=== PATIENT | male | born 1955 ===

== ENCOUNTER 2018-09-02 10:43 | Emergency (ER) | payer OTHER ==
--- NOTE | 2018-09-02 11:08 | EDPHY ---
H & P Stated Complaint: hematuria/clots post radiation x 9 wks for prostate cancer Source: Patient Exam Limitations: No limitations - Personal History Current Tetanus Diphtheria and Acellular Pertussis (TDAP): Yes - Medical/Surgical History Hx Asthma: No Hx Chronic Respiratory Disease: No Hx Diabetes: No Hx Cardiac Disease: No Hx Renal Disease: No Hx Cirrhosis: No Hx Alcoholism: No Hx HIV/AIDS: No Hx Splenectomy or Spleen Trauma: No Other PMH: prostate cancer - Social History Smoking Status: Never smoked Time Seen by Provider: 09/02/18 11:07 HPI/ROS: HPI: This is a 63-year-old male who presents with Chief Complaint: hematuria/clots post radiation x 9 wks for prostate cancer Location: Quality: Blood in urine Duration: Since last night Signs and Symptoms: no fever, no nausea, no vomiting, no hematemesis, no blood in stool, no abdominal bloating, no diarrhea, no back pain, no urinary symptoms , no testicular/groin pain, no indigestion, no chest pain, no shortness of breath, + suprapubic fullness Timing: Rapid onset, slowly resolving Severity: [id number] Context: Patient has a history of prostate cancer, recently completed 9 weeks of radiation approximately 5 days ago, patient of Dr. Schofield, presents with complaints of last night having suprapubic fullness and passing large clots of blood in his urine. He was treated last month for urinary tract infection. He denies fever, burning with urination, back pain, chills, rigors. He has no dizziness, chest pain, shortness of breath. He reports that today he is able to urinate without difficulty. Modifying Factors: None Comment: ROS: A comprehensive 10 system review of systems is otherwise negative aside from elements mentioned in the history of present illness. MEDICAL/SURGICAL/SOCIAL HISTORY: Medical history: Prostate cancer, hypothyroidism Surgical history: Denies Social history: . Never smoked. Family history noncontributory. CONSTITUTIONAL: Overweight, nontoxic-appearing elderly white male, at bedside, awake and alert, no obvious distress HEENT: Atraumatic and normocephalic, PERRL, EOMI. Nares patent; no rhinorrhea; no nasal mucosal edema. Tympanic membranes clear. Oropharynx clear, no exudate and moist pink mucosa. Airway patent. No lymphadenopathy. No meningismus. Cardiovascular: Normal S1/S2, regular rate, regular rhythm, without murmur rub or gallop. PULMONARY/CHEST: Symmetrical and nontender. Clear to auscultation bilaterally. Good air movement. No accessory muscle usage. ABDOMEN: Soft, nondistended, mild suprapubic tenderness, no rebound, no guarding, no peritoneal signs, no masses or organomegaly. No CVAT. EXTREMITIES: 2/2 pulses, strength 5/5, no deformities, no clubbing, no cyanosis or edema. NEUROLOGICAL: no focal neuro deficits. GCS 15. SKIN: Warm and dry, no erythema. no rash. Good capillary refill. (Veran Naik) Constitutional: Initial Vital Signs Temperature (C) 36.4 C 09/02/18 10:48 Heart Rate 88 09/02/18 10:48 Respiratory Rate 18 09/02/18 10:48 Blood Pressure 122/69 H 09/02/18 10:48 O2 Sat (%) 96 09/02/18 10:48 O2 Delivery Mode Room Air Allergies/Adverse Reactions: No Known Allergies Allergy (Unverified 09/02/18 10:48) Home Medications: Medication Instructions Recorded Atorvastatin Calcium 09/02/18 Ciprofloxacin [Cipro] 500 mg PO BID #14 tab 09/02/18 Levothyroxine 09/02/18 Tamsulosin HCl 09/02/18 Medical Decision Making ED Course/Re-evaluation: Vital signs reviewed and stable upon arrival. No systemic signs. IV access, laboratory studies, urinalysis, bladder scan ordered 1122: Notified by RN that bladder scan= 58 mL 1208: Urinalysis shows signs of infection; sent for urine culture; IV Rocephin 1 g given Labs reviewed. WBC 9 K, H&H 11.7/35.3, BUN 27, creatinine 1.9 Will Discharge patient home on Cipro with Urology follow-up. No signs of pyelonephritis, sepsis, urinary retention. This patient was seen under the supervision of my secondary supervising physician. I evaluated care for this patient independently. (Verna Naik) The patient was evaluated and managed by the physician assistant pressman. I have reviewed this chart and I agree with the findings and plan of care as documented , as indicated by my signature. I am the secondary supervising physician. ( Marleen Avelar) Differential Diagnosis: Differential diagnosis includes but is not limited to microscopic hematuria, gross hematuria, urinary tract infection, pyelonephritis, urinary retention, urinary outlet obstruction. (Verna Naik) - Data Points Laboratory Results: Laboratory Results 09/02/18 11:10 09/02/18 11:10 Microbiology Results: MICROBIOLOGY 09/02/18 10:50 Urine,Clean Catch Urine Culture - Final Actinotignum Schaalii Medications Given: Discontinued Medications Ceftriaxone Sodium/Dextrose (Rocephin 1 Gm (Premix)) 50 mls @ 100 mls/hr IV EDNOW ONE PRN Reason: Protocol Stop: 09/02/18 12:37 Last Admin: 09/02/18 12:17 Dose: 50 mls Departure - Departure Disposition: Home, Routine, Self-Care Clinical Impression: Hematuria, Lower urinary tract infection Condition: Good Instructions: Urinary Tract Infection in Men (ED), Hematuria (ED) Additional Instructions: Take antibiotic as directed. Do not skip a dose. Consume a minimum of 8-10 glasses of water or electrolyte fluid replacement drinks that include Gatorade, Powerade, Pedialyte. Call Urology appointment on Monday for follow-up early next week. Referrals: Blanco Schofield MD [Medical Doctor] - As per Instructions Prescriptions: Ciprofloxacin [Cipro] 500 mg PO BID #14 tab
[2018-09-02 11:36] LABS: PLATELET COUNT 281 10^3/uL (150-400)
[2018-09-02 12:58] VITALS: BP 132/66
== END 2018-09-02 12:58 | disposition home or self-care (01) ==
PROC: 4A0D7LZ Measurement of Urinary Volume, Via Natural or Artificial Opening (ICD-10-PCS; principal; 2018-09-02)
DX: N39.0 Urinary tract infection, site not specified (principal); Z85.46 Personal history of malignant neoplasm of prostate
CPT/HCPCS: 96365; J0696